=== PATIENT | male | born 1975 | race Caucasian/White ===

== ENCOUNTER → 2020-02-26 08:07 | Outpatient (CLI) | payer OTHER, SELFPAY ==
[2020-02-26 10:04] LABS: Absolute Lymphocyte Count 2.07 X10^3/uL (0.83-4.51); Absolute Neutrophil Count 4.6 X10^3/uL (2.0-7.7); Basophil# 0.06 X10^3/uL; Basophil% 0.8 % (0-1); Eosinophil# 0.22 X10^3/uL; Eosinophils% 2.9 % (0-5); Hematocrit 43.1 % (40-54); Hemoglobin 13.4 g/dL (13.0-16.5); Lymphocyte # 2.07 X10^3/ul (4.0); Lymphocyte % 26.9 % (19-41); Mean Corp Hgb Conc 31.1 g/dL (32-36); Mean Corpuscular Hgb 25.1 pg (27.0-32.0); Mean Corpuscular Volume 80.7 fL (80-94); Mean Platelet Vol. 10.2 fl (6.2-12.0); Monocyte# 0.72 X10^3/uL; Monocyte% 9.4 % (0-10); NRBC Flagged by Analyzer 0 % (0-5); Neutrophil # 4.57 X10^3/uL (2.7-7.7); Neutrophil % 59.2 % (47-70); Platelet Count 230 K/mm3 (150-450); RBC Distribution Width CV 14.5 % (11.6-14.6); RBC Distribution Width SD 42.3 fl (35.1-43.9); Red Blood Count 5.34 M/mm3 (4.6-6.2); White Blood Count 7.7 K/mm3 (4.4-11.0)
[2020-02-26 10:11] LABS: Prothrombin Time (Protime)PT. 22.5 SECONDS (11.7-14.9)
[2020-02-26 10:37] LABS: Microalbumin,Random Urine 14.8 mg/L (NO RANGE EST.); Microalbumin:Creatinine Ratio 5.2 mg/g CRE (<30 mg/g CRE)
[2020-02-26 11:04] LABS: AST(SGOT) 24 U/L (15-37); Alanine Aminotransfer ALT/SGPT 22 U/L (16-61); Albumin, Serum 3.6 g/dL (3.2-5.0); Alkaline Phosphatase 76 U/L (45-117); Anion Gap 3 (5-15); BUN 9 mg/dL (7-18); BUN/Creat Ratio 10.5 RATIO (10-20); Calcium,Total 8.5 mg/dL (8.5-10.1); Chloride 104 mmol/L (98-107); Cholesterol 143 mg/dL (200); Creatinine, Serum 0.86 mg/dL (0.70-1.30); EST Glomerular Filtration Rate 103 mL/min (>60); Est Glom Filt Rate - Afr Amer 125 mL/min (>60); Globulin 3.7 g/dL (2.2-4.2); Glucose 83 mg/dL (74-106); High Density Lipoprotein 38 mg/dL; Magnesium 2.3 mg/dL (1.6-2.6); Potassium 3.8 mmol/L (3.5-5.1); Protein, Total 7.3 g/dL (6.4-8.2); Sodium Level 138 mmol/L (136-145); Triglycerides 91 mg/dL; Very Low Density Lipoprotein 18 mg/dL (5-40)
[2020-02-27 15:26] LABS: ANTINUCLEAR ANTIBODIES DIRECT Negative (Negative)
== END ==
PROVIDERS: PCP Family Medicine; Referring Provider Family Medicine; Visit Provider Family Medicine
DX: M13.0 Polyarthritis, unspecified (principal); Z79.52 Long term (current) use of systemic steroids; Z79.01 Long term (current) use of anticoagulants; I10 Essential (primary) hypertension; I49.3 Ventricular premature depolarization
CPT/HCPCS: 36415; 80053; 80061; 82043; 82570; 83735; 85025; 85610; 86038

== ENCOUNTER → 2020-03-26 12:49 | Outpatient (CLI) | payer OTHER, SELFPAY ==
[2020-03-12 12:38] VITALS: BMI 28.4
--- NOTE | 2020-03-26 12:50 | ECHOD_ITS ---
Version 2 Reason For Study: Valve Replacement Eval Procedure This was a 2D Doppler, Color Flow transthoracic echocardiogram. Exam performed in department. Left Ventricle Normal LV size. Left ventricular systolic function is normal. The estimated ejection fraction is 60 %. No regional wall motion abnormalities noted. Right Ventricle Normal RV size. Normal systolic function. Atria Normal left atrium. Normal right atrium. Mitral Valve Normal mitral valve. Tricuspid Valve Normal tricuspid valve. Mild (1+) tricuspid valve insufficiency. Aortic Valve Peak aortic valve gradient 12 mmHg. Mean aortic valve gradient 6 mmHg. Stable appearing mechanical aortic valve apparatus. Prosthetic aortic valve strands. Pulmonic Valve Normal pulmonic valve. Great Vessels Mild to moderately dilated aortic root. The pulmonary artery is normal size. Normal inferior vena cava. Pericardium/Pleural No pericardial effusion. MMode/2D Measurements & Calculations LVIDd: 4.1 cm IVSd: 0.91 cm Ao root diam: 2.9 cm LVIDs: 2.4 cm LVPWd: 1.0 cm RVDd: 3.7 cm FS: 42.7 % LAV(MOD-bp): 21.6 ml LVAd ap4: 27.0 cm2 SV(MOD-sp4): 44.6 ml LAV(MOD-bp) Indexed: 11.5 ml/m2 EDV(MOD-sp4): 72.4 ml LAV(MOD-sp2): 24.7 ml EDV(sp4-el): 73.8 ml LAV(MOD-sp4): 14.9 ml LVAs ap4: 14.8 cm2 ESV(MOD-sp4): 27.9 ml ESV(sp4-el): 27.9 ml EF(MOD-sp4): 61.5 % EF(sp4-el): 62.2 % SV(sp4-el): 45.9 ml LA A4 area: 7.8 cm2 LA dimension(2D): 3.2 cm RA A4 area: 7.5 cm2 Doppler Measurements & Calculations MV E max roberto: 95.9 cm/sec Lat Peak E' Roberto: 17.3 cm/sec Med Peak E' Roberto: 9.5 cm/sec MV A max roberto: 54.7 cm/sec E/E' lat: 5.5 E/E' med: 10.1 MV E/A: 1.8 Ao V2 max: 179.1 cm/sec LV V1 max: 131.3 cm/sec PA V2 max: 122.3 cm/sec Ao max P.8 mmHg LV V1 max P.9 mmHg Ao V2 mean: 118.7 cm/sec Ao mean P.6 mmHg Ao V2 VTI: 34.2 cm PI end-d roberto: 63.6 cm/sec TR max roberto: 232.5 cm/sec TR max P.6 mmHg Interpretation Summary Normal LV size. Left ventricular systolic function is normal. Stable appearing mechanical aortic valve apparatus. Mean aortic valve gradient 6 mmHg. The estimated ejection fraction is 60 %. Prosthetic aortic valve strands. Ordering Physician: Noman Hinojosa Referring Physician: Taye Lechuga Performed By: Tiana Cervantes, SHANNAN, RVT
== END ==
PROVIDERS: PCP Family Medicine; Referring Provider Internal Medicine Cardiovascular Disease; Visit Provider Internal Medicine Cardiovascular Disease
DX: Z95.2 Presence of prosthetic heart valve (principal)
CPT/HCPCS: 93306

== ENCOUNTER → 2020-12-12 11:29 | Outpatient (CLI) | payer OTHER, SELFPAY ==
[2020-11-28 14:40] VITALS: BMI 29.2
[2020-12-12 14:40] LABS: Erythrocyte Sedimentation Rate 7 mm/hr (0-20)
[2020-12-12 14:41] LABS: Absolute Lymphocyte Count 1.43 X10^3/uL (0.83-4.51); Basophil# 0.06 X10^3/uL; Basophil% 0.6 % (0-1); Eosinophil# 0.24 X10^3/uL; Eosinophils% 2.2 % (0-5); Hematocrit 44.3 % (40-54); Hemoglobin 13.6 g/dL (13.0-16.5); Lymphocyte # 1.43 X10^3/ul (0.83-4.51); Lymphocyte % 13.4 % (19-41); Mean Corp Hgb Conc 30.7 g/dL (32-36); Mean Corpuscular Hgb 23.8 pg (27.0-32.0); Mean Corpuscular Volume 77.4 fL (80-94); Monocyte# 0.94 X10^3/uL; Monocyte% 8.8 % (0-10); NRBC Flagged by Analyzer 0 % (0-5); Neutrophil # 7.99 X10^3/uL (2.7-7.7); Neutrophil % 74.6 % (47-70); Platelet Count 357 K/mm3 (150-450); RBC Distribution Width CV 15.4 % (11.6-14.6); RBC Distribution Width SD 43.2 fl (35.1-43.9); Red Blood Count 5.72 M/mm3 (4.6-6.2); White Blood Count 10.7 K/mm3 (4.4-11.0)
[2020-12-12 14:51] LABS: International Normalized Ratio 2.8
[2020-12-12 15:17] LABS: ALB/GLOB Ratio 0.9 RATIO (0.9-2.4); AST(SGOT) 19 U/L (15-37); Alanine Aminotransfer ALT/SGPT 27 U/L (16-61); Albumin, Serum 3.6 g/dL (3.2-5.0); Alkaline Phosphatase 88 U/L (45-117); Anion Gap 6 (5-15); BUN 10 mg/dL (7-18); BUN/Creat Ratio 12.7 RATIO (10-20); Calcium,Total 8.6 mg/dL (8.5-10.1); Chloride 103 mmol/L (98-107); Creatinine, Serum 0.79 mg/dL (0.70-1.30); EST Glomerular Filtration Rate 114 mL/min (>60); Est Glom Filt Rate - Afr Amer 138 mL/min (>60); Ferritin 61 ng/mL (26-388); Globulin 4.1 g/dL (2.2-4.2); Glucose 66 mg/dL (74-106); Potassium 4.1 mmol/L (3.5-5.1); Protein, Total 7.7 g/dL (6.4-8.2); Sodium Level 139 mmol/L (136-145); T4 Free Direct 1.06 ng/dL (0.76-1.46); Thyroid Stim Hormone (TSH) 0.43 uIU/mL (0.358-3.74)
== END ==
PROVIDERS: PCP Family Medicine; Referring Provider Family Medicine; Visit Provider Family Medicine
DX: M13.0 Polyarthritis, unspecified (principal); Z95.2 Presence of prosthetic heart valve; E07.9 Disorder of thyroid, unspecified
CPT/HCPCS: 36415; 80053; 82728; 84439; 84443; 85025; 85610; 85652; 86140

== ENCOUNTER → 2021-03-23 09:10 | Outpatient (CLI) | payer OTHER, SELFPAY ==
[2021-03-23 10:49] LABS: International Normalized Ratio 3.5; Prothrombin Time (Protime)PT. 34.3 SECONDS (11.7-14.9)
[2021-03-23 11:21] LABS: ALB/GLOB Ratio 0.8 RATIO (0.9-2.4); AST(SGOT) 18 U/L (15-37); Alanine Aminotransfer ALT/SGPT 27 U/L (16-61); Albumin, Serum 3.3 g/dL (3.2-5.0); Alkaline Phosphatase 85 U/L (45-117); Anion Gap 4 (5-15); BUN 8 mg/dL (7-18); BUN/Creat Ratio 10.5 RATIO (10-20); Calcium,Total 8.5 mg/dL (8.5-10.1); Chloride 105 mmol/L (98-107); Creatinine, Serum 0.76 mg/dL (0.70-1.30); EST Glomerular Filtration Rate 118 mL/min (>60); Est Glom Filt Rate - Afr Amer 143 mL/min (>60); Globulin 4.3 g/dL (2.2-4.2); Glucose 116 mg/dL (74-106); Potassium 3.6 mmol/L (3.5-5.1); Protein, Total 7.6 g/dL (6.4-8.2); Sodium Level 140 mmol/L (136-145)
== END ==
PROVIDERS: PCP Family Medicine; Referring Provider Family Medicine; Visit Provider Family Medicine
DX: I10 Essential (primary) hypertension (principal); M13.0 Polyarthritis, unspecified; Z95.2 Presence of prosthetic heart valve
CPT/HCPCS: 36415; 80053; 85610; 86141

== ENCOUNTER → 2021-05-28 09:37 | Outpatient (CLI) | payer OTHER, SELFPAY ==
[2021-05-28 12:22] LABS: Erythrocyte Sedimentation Rate 23 mm/hr (0-20)
[2021-05-28 12:27] LABS: International Normalized Ratio 3.6; Prothrombin Time (Protime)PT. 35.3 SECONDS (11.7-14.9)
[2021-05-28 12:31] LABS: Absolute Lymphocyte Count 1.41 X10^3/uL (0.83-4.51); Basophil# 0.05 X10^3/uL; Basophil% 0.5 % (0-1); Eosinophil# 0.15 X10^3/uL; Eosinophils% 1.4 % (0-5); Hematocrit 41.6 % (40-54); Hemoglobin 12.6 g/dL (13.0-16.5); Lymphocyte # 1.41 X10^3/ul (0.83-4.51); Lymphocyte % 13.3 % (19-41); Mean Corp Hgb Conc 30.3 g/dL (32-36); Mean Corpuscular Hgb 22.2 pg (27.0-32.0); Mean Corpuscular Volume 73.2 fL (80-94); Mean Platelet Vol. 9.5 fl (6.2-12.0); Monocyte# 0.97 X10^3/uL; Monocyte% 9.2 % (0-10); NRBC Flagged by Analyzer 0 % (0-5); Neutrophil # 7.96 X10^3/uL (2.7-7.7); Platelet Count 306 K/mm3 (150-450); RBC Distribution Width CV 17.1 % (11.6-14.6); RBC Distribution Width SD 44.6 fl (35.1-43.9); Red Blood Count 5.68 M/mm3 (4.6-6.2); White Blood Count 10.6 K/mm3 (4.4-11.0)
[2021-05-28 12:50] LABS: PTHIN 59.7 pg/mL (18.4-80.1)
[2021-05-28 12:56] LABS: Vitamin B12 272 pg/mL (211-911)
[2021-05-28 13:27] LABS: Rheumatoid Factor < 10.0 IU/mL (<15)
[2021-05-30 08:01] LABS: ANTINUCLEAR ANTIBODIES DIRECT Negative (Negative)
[2021-06-01 14:08] LABS: PROEL- A/G Ratio 1.2 (0.7-1.7); PROEL- Albumin 3.8 g/dL (2.9-4.4); PROEL- Alpha-1 Globulin 0.3 g/dL (0.0-0.4); PROEL- Alpha-2 Globulin 0.4 g/dL (0.4-1.0); PROEL- Beta Globulin 1.3 g/dL (0.7-1.3); PROEL- Gamma Globulin 1.2 g/dL (0.4-1.8); PROEL- Globulin, Total 3.2 g/dL (2.2-3.9); PROELU- Albumin, Urine 23.1 % (.); PROELU- Alpha-1-Globulin,Ur 0.2 % (.); PROELU- Alpha-2-Globulin,Ur 24.2 % (.); PROELU- Beta Globulin, Ur 34.8 % (.); PROELU- Gamma Globulin, Ur 17.7 % (.); Total Protein, Ur 34.1 mg/dL (Not Estab.)
[2021-06-02 16:33] LABS: CCP IgG Antibodies 6 units (0-19)
== END ==
PROVIDERS: PCP Family Medicine; Referring Provider Family Medicine; Visit Provider Family Medicine
DX: M13.0 Polyarthritis, unspecified (principal)
CPT/HCPCS: 36415; 82607; 82746; 83970; 84165; 84166; 85025; 85610; 85652; 86038; 86140; 86200; 86431

== ENCOUNTER 2021-07-13 16:43 | Emergency (ER) | payer OTHER, SELFPAY ==
[2021-07-13 16:44] VITALS: BP 121/83; PULSE 78; RESP 16; TEMP 35.6; O2SAT 96; BMI 28.6
[2021-07-13 18:40] LABS: International Normalized Ratio 1.1; Prothrombin Time (Protime)PT. 13.6 SECONDS (11.7-14.9)
[2021-07-13 21:08] VITALS: BP 109/69; O2SAT 97
--- NOTE | 2021-07-13 21:27 | EDS_ITS ---
HPI History of Present Illness Chief Complaint: Lower Extremity Injury Informant: patient Narrative Narrative: 45-year-old male states that yesterday he woke up he had some changes where he was perceiving temperature in his right leg. He states that he knows that he can only stand on it so long before he starts hurting. He is on Coumadin because of a mechanical valve replacement. Reportedly he went saw a nurse practitioner today who ordered vascular studies showed that it was negative for DVT he had a right HILTON of 0.56 and a left HILTON of 1.35. Impression was moderate disease at rest on the right. Reportedly he was told to come to emergency. He had his INR last tested about 1 month ago [facility] Medical History Anticoagulated on Coumadin Current chronic use of systemic steroids Nonrheumatic aortic (valve) stenosis PVC's (premature ventricular contractions) Seronegative arthritis Home Medications aspirin 81 mg tablet,delayed release 81 mg PO DAILY 03/07/20 [History Last Taken Unknown] folic acid 1 mg tablet 1 mg PO DAILY 03/07/20 [History Last Taken Unknown] prednisone 5 mg tablet 5 mg PO DAILY 03/07/20 [History Last Taken Unknown] warfarin 1 mg tablet 1 mg PO DAILY 03/07/20 [History Last Taken Unknown] warfarin 5 mg tablet 5 mg PO DAILY 03/07/20 [History Last Taken Unknown] amoxicillin 500 mg tablet 2,000 mg PO ONCE tab 03/12/20 [History Last Taken Unknown] metoprolol tartrate 50 mg tablet 25 mg PO BID tab 03/12/20 [History Last Taken Unknown] sildenafil 50 mg tablet 50 mg PO DAILY PRN #30 tab 03/12/20 [Rx Last Taken Unknown] hydroxychloroquine 200 mg tablet 200 mg PO .5Xweek tab 11/28/20 [History Last Taken Unknown] Allergy/AdvReac Type Severity Reaction Status Date / Time No Known Allergies Allergy Unverified 07/13/21 16:47 Surgical History History of mechanical aortic valve replacement (2009) Social History Smoking Status: Never smoker alcohol intake: never substance use type: does not use ROS ROS ED Constitutional Constitutional ED: Denies chills, fever(s) or weight loss Eyes Eyes: Denies change in vision or diplopia ENT ENT ED: Denies ear pain, rhinorrhea or sore throat Cardiovascular Cardiovascular: Denies chest pain, orthopnea, palpitations or racing heartbeat Respiratory/Chest Respiratory/Chest: Denies cough, dyspnea or orthopnea Gastrointestinal Gastrointestinal: Denies abdominal pain, diarrhea, nausea or vomiting Genitourinary Genitourinary ED: Denies dysuria, hematuria or urinary frequency Musculoskeletal Musculoskeletal: Reports other Details: See HPI ; Denies arthralgias or myalgias Integumentary Denies abscess or rash Neurologic Neurologic: Denies headache(s) or weakness Psychiatric Psychiatric: Denies anxiety, depression, suicidal ideation or suicidal thoughts Endocrine Endocrinology: Denies polydipsia, polyphagia or polyuria Allergic/Immunologic Allergic/Immunologic ED: Denies mouth swelling, tongue swelling or urticaria EXAM Physical Exam Const Vital Signs: 07/13/21 16:44 07/13/21 21:08 Temperature 96.0 F L Temperature Source Temporal Pulse Rate 78 Respiratory Rate 16 Blood Pressure 121/83 H 109/69 Blood Pressure Mean 95 82 Pulse Ox 96 97 Oxygen Delivery Method Room Air Room Air Positive well nourished and well developed General Appearance ED: well developed HEENT Reports normocephalic, head/scalp atraumatic and moist mucous membranes normocephalic and atraumatic Eyes PERRL and EOMs intact bilaterally Eyes Narrative: EOMI Neck no lymphadenopathy, supple and no JVD Resp normal respiratory effort and clear to auscultation bilaterally Cardio regular rate, regular rhythm and no murmurs GI normal to inspection, nondistended, normoactive bowel sounds and non-tender Palpation: soft Back/Spine no CVA tenderness and normal ROM Extremity normal to inspection Extremity Narrative: There is significant hair of the lower extremity. The temperature is equal of the thigh leg and feet bilaterally. There is good capillary refill of the digits. Sensation is preserved. General Extremety ED: Negative for edema General Extremity: Negative for edema Neuro oriented x3 and CN's II-XII intact bilaterally Sensorium / Orientation: alert Motor Exam: strength 5/5 throughout Psych mental status grossly normal Mood & Affect: Negative for depressed or tearful Skin no rashes or lesions noted and no wounds MDM MDM MDM Narrative Medical decision making narrative: Patient has evidence of peripheral vascular disease. His INR is subtherapeutic at 1.1. I will bridge him with some Lovenox have him double his dose of Coumadin tonight and tomorrow. He will need to get his INR checked again on Tuesday. I do not believe he needs an emergent vascular consult tonight is a not seeing evidence of ischemia. I think the patient would definitely benefit from vascular surgery evaluation as an outpatient basis unless something changes Lab Data Labs: Laboratory Results - last 24 hr 07/13/21 18:23 PT 13.6 INR 1.1 Discharge Plan Triage Chief Complaint: Lower Extremity Injury ED Provider: Jose Gagnno Dx/Rx/DC Orders Prescriptions: No Action amoxicillin 500 mg tablet 2,000 mg PO ONCE RF: 0 metoprolol tartrate 50 mg tablet 25 mg PO BID RF: 0 sildenafil 50 mg tablet 50 mg PO DAILY PRN (Reason: sexual activity) Qty: 30 RF: 0 aspirin [Adult Low Dose Aspirin] 81 mg tablet,delayed release (DR/EC) 81 mg PO DAILY RF: 0 folic acid 1 mg tablet 1 mg PO DAILY RF: 0 prednisone 5 mg tablet 5 mg PO DAILY RF: 0 warfarin 1 mg tablet 1 mg PO DAILY RF: 0 warfarin 5 mg tablet 5 mg PO DAILY RF: 0 hydroxychloroquine 200 mg tablet 200 mg PO .5Xweek RF: 0 Primary Care Provider: Taye Lechuga Referrals: Taye Lechuga MD [Primary Care Provider] -
[2021-07-13] MEDS: Enoxaparin 120 MG/0.8 ML Syringe SC (21:32)
== END 2021-07-13 21:44 | disposition home or self-care (01) ==
LOC: ED 21:39
PROVIDERS: Emergency Provider Emergency Medicine; PCP Internal Medicine; Visit Provider Emergency Medicine
DX: I73.9 Peripheral vascular disease, unspecified (principal); Z95.2 Presence of prosthetic heart valve; Z79.01 Long term (current) use of anticoagulants; I35.0 Nonrheumatic aortic (valve) stenosis; Z79.899 Other long term (current) drug therapy
CPT/HCPCS: 36415; 85610; 99283

== ENCOUNTER 2021-07-15 09:25 | Outpatient (CLI) | payer OTHER, SELFPAY ==
[2021-07-15 09:59] LABS: International Normalized Ratio 1.1
== END 2021-07-15 23:59 | disposition short-term general hospital (02) ==
LOC: LAB 09:29
PROVIDERS: PCP Internal Medicine; Referring Provider Internal Medicine Cardiovascular Disease; Visit Provider Internal Medicine Cardiovascular Disease
DX: Z95.2 Presence of prosthetic heart valve (principal); Z79.01 Long term (current) use of anticoagulants
CPT/HCPCS: 36415; 85610